=== PATIENT | male | born 1935 | race Caucasian/White ===

== ENCOUNTER 2017-04-20 09:25 | Emergency (ER) | payer OTHER ==
[~2017-04-20] VITALS: Ht 165.1 cm; Wt 63.5 kg
[~2017-04-20 09:25] MED LIST: ATEN50TA PO; CLIN-63 PO; LISI5TAB; LOVA20TA PO; LOVA40TA2 PO; OMEP20CA4 PO; OMEP20TA68 PO; TAMS-12 PO; TAMS0.4C34 PO
[2017-04-20 09:29] VITALS: BP 159/84
== END 2017-04-20 10:00 | disposition home or self-care (01) ==
LOC: ER 09:27
DX: Z46.6 Encounter for fitting and adjustment of urinary device (principal); N40.1 Benign prostatic hyperplasia with lower urinary tract symptoms; R33.8 Other retention of urine; I10 Essential (primary) hypertension; Z95.1 Presence of aortocoronary bypass graft; Z88.6 Allergy status to analgesic agent
CPT/HCPCS: 99281; A4606; Z7502; Z7610

== ENCOUNTER 2017-11-11 14:01 | Emergency (ER) | payer MEDICARE, OTHER ==
[~2017-11-11] VITALS: Ht 167.6 cm; Wt 70.3 kg
[~2017-11-11 14:01] MED LIST changes: -CLIN-63 PO; +CLIN150C16 PO; +OMEP20TA5 PO; -OMEP20TA68 PO
--- NOTE | 2017-11-11 14:10 | NUR ---
AAOX3, CAME TO ER C/O DYSURIA, PAIN DURING URINATION HX OF BPH. RR IS EVEN AND UNLABORED WITH NAD NOTED. SKIN IS WARM AND DRY. AWAITING MD FOR EVAL.
[2017-11-11 15:05] LABS: BASOPHILS # (AUTO) 0.5 /CMM (0.0-0.2); BASOPHILS % (AUTO) 2.9 % (0.0-2.0); EOSINOPHILS # (AUTO) 0.1 /CMM (0.0-0.7); EOSINOPHILS % (AUTO) 0.7 % (0.0-6.0); HEMATOCRIT 40 % (39-51); HEMOGLOBIN 13.9 g/dL (13.5-17.5); LYMPHOCYTES # (AUTO) 1.4 /CMM (0.8-4.8); LYMPHOCYTES % (AUTO) 9.1 % (20.0-44.0); MEAN CORPUSCULAR HEMOGLOBIN 31 PG (26.0-33.0); MEAN CORPUSCULAR HGB CONC 35 g/dl (31.0-36.0); MEAN CORPUSCULAR VOLUME 91 fL (80-96); MONOCYTES # (AUTO) 0.7 /CMM (0.1-1.30); MONOCYTES % (AUTO) 4.5 % (2.0-12.0); NEUTROPHILS # (AUTO) 13.2 /CMM (1.8-8.9); NEUTROPHILS % (AUTO) 82.8 % (43.0-81.0); PLATELET COUNT (AUTO) 160 /CMM (150-450); RED BLOOD CELL COUNT(AUTO) 4.43 MIL/uL (4.5-6.0); WHITE BLOOD COUNT (AUTO) 15.9 K/uL (4.3-11.0)
[2017-11-11 15:15] LABS: CALCIUM, SERUM 8.2 mg/dL (8.5-10.1); CARBON DIOXIDE 26 mmol/L (21-32); CHLORIDE 96 mmol/L (98-107); CREATININE 0.8 mg/dL (0.6-1.3); GLUCOSE 98 mg/dL (74-106); POTASSIUM 4.5 mmol/L (3.5-5.1); SODIUM SERUM 128 mmol/L (136-145); UREA NITROGEN, BLOOD 15 mg/dL (7-18)
[2017-11-11 15:21] LABS: ALANINE AMINOTRANSFERASE 38 U/L (12-78); ALKALINE PHOSPHATASE 108 U/L (46-116); ASPARTATE AMINOTRANSFERASE 23 U/L (15-37); BILIRUBIN,DIRECT 0.5 mg/dL (0.0-0.2); BILIRUBIN,TOTAL 3.4 mg/dL (0.2-1.0); LIPASE 129 U/L (73-393); TOTAL PROTEIN, SERUM 7.1 g/dL (6.4-8.2)
[2017-11-11 15:45] LABS: APPEARANCE,URINE Slightly Cloudy (CLEAR); BILIRUBIN,URINE SMALL (NEGATIVE); BLOOD, URINE Trace-lysed Ery/uL (NEGATIVE); KETONES,URINE 15 (NEGATIVE); LEUKOCYTE ESTERASE ,URINE Trace (NEGATIVE); NITRITE, URINE Negative (NEGATIVE); PROTEIN,URINE 30 mg/dl (NEGATIVE); UGLUCOSE 100 MG/DL mg/dL (NEGATIVE)
[2017-11-11 15:51] LABS: COLOR,URINE Dark Yellow (YELLOW)
[2017-11-11 15:53] LABS: BACTERIA,URINE Rare /HPF (None Seen); SQUAMOUS EPITHELIAL CELL,UR Few /HPF (None Seen)
--- NOTE | 2017-11-11 15:57 | NUR ---
PATIENT TRANSPORTED FOR CT VIA WHEELCHAIR.
--- NOTE | 2017-11-11 16:50 | NUR ---
DR JONES AT FOR AN UPDATE AND RE-EVAL.
--- NOTE | 2017-11-11 16:55 | NUR ---
Patient discharged to home in stable condition. Written and verbal after care instructions given. Patient verbalizes understanding of instruction.
[2017-11-11] MEDS ORDERED: CIPROFLOXACIN HCL 500 MG TABLET ONE (16:57)
[2017-11-11 16:58] VITALS: BP 130/68
[2017-11-11] MEDS ORDERED: CIPROFLOXACIN HCL 250 MG TABLET PO ONE (17:00)
== END 2017-11-11 16:59 | disposition home or self-care (01) ==
LOC: ER 14:05
DX: R30.0 Dysuria (principal); E87.1 Hypo-osmolality and hyponatremia; R91.1 Solitary pulmonary nodule; R94.5 Abnormal results of liver function studies; E78.5 Hyperlipidemia, unspecified; I10 Essential (primary) hypertension; I25.10 Atherosclerotic heart disease of native coronary artery without angina pectoris; K21.9 Gastro-esophageal reflux disease without esophagitis; K44.9 Diaphragmatic hernia without obstruction or gangrene; K59.00 Constipation, unspecified; N40.1 Benign prostatic hyperplasia with lower urinary tract symptoms; Z90.49 Acquired absence of other specified parts of digestive tract; Z95.1 Presence of aortocoronary bypass graft; Z98.890 Other specified postprocedural states; Z88.6 Allergy status to analgesic agent; Z79.01 Long term (current) use of anticoagulants
CPT/HCPCS: 36415; 74176; 80048; 80076; 81001; 83690; 85025; 99285; A4606; 81000-TC; Z7610

== ENCOUNTER 2017-12-23 10:03 | Emergency (ER) | payer MEDICARE ==
[~2017-12-23] VITALS: Ht 165.1 cm; Wt 62.6 kg
--- NOTE | 2017-12-23 10:15 | NUR ---
PT CAME IN WITH C/O NECK PAIN X2 DAY ADMISSIONS NURSE . DENIES TRAUMA FALL DENIES CP. SEEN BY MD FOR EVAL. VSS. SAFETY AND COMFORT MEASURES PROVIDED. WILL MONITOR.
[2017-12-23] MEDS ORDERED: ONDANSETRON 4 MG TAB.RAPDIS ONE (10:48)
[2017-12-23] MEDS ORDERED: CYCLOBENZAPRINE 10 MG TABLET ONE (10:48)
--- NOTE | 2017-12-23 10:50 | NUR ---
PT TAKEN TO CT.
[2017-12-23] MEDS ORDERED: CYCLOBENZAPRINE 10 MG TABLET PO ONE (11:00)
[2017-12-23] MEDS ORDERED: HYDROMORPHONE INJ 0.5 MG/0.5 ML SYRINGE IM ONE (11:00)
[2017-12-23] MEDS ORDERED: MORPHINE SULFATE INJ 2 MG/ML DISP.SYRIN IM ONE (11:00)
[2017-12-23] MEDS ORDERED: ONDANSETRON 4 MG TAB.RAPDIS SL ONE (11:00)
--- NOTE | 2017-12-23 11:00 | NUR ---
PT MEDICATED ORDERED.
[2017-12-23] MEDS ORDERED: HYDROCODONE/APAP 5/325MG 1 EACH TABLET ONE (11:24)
[2017-12-23] MEDS ORDERED: HYDROCODONE/APAP 5/325MG 1 EACH TABLET PO ONE (11:30)
--- NOTE | 2017-12-23 12:00 | NUR ---
Patient discharged to home in stable condition. Written and verbal after care instructions given. Patient verbalizes understanding of instruction.
[2017-12-23 12:13] VITALS: BP 131/85
== END 2017-12-23 12:13 | disposition home or self-care (01) ==
LOC: ER 10:04
DX: M54.2 Cervicalgia (principal); M19.90 Unspecified osteoarthritis, unspecified site; E78.5 Hyperlipidemia, unspecified; I10 Essential (primary) hypertension; I25.10 Atherosclerotic heart disease of native coronary artery without angina pectoris; K21.9 Gastro-esophageal reflux disease without esophagitis; N40.0 Benign prostatic hyperplasia without lower urinary tract symptoms; Z90.49 Acquired absence of other specified parts of digestive tract; Z95.1 Presence of aortocoronary bypass graft; Z88.6 Allergy status to analgesic agent; Z88.8 Allergy status to other drugs, medicaments and biological substances
CPT/HCPCS: 72125; 99284; A4606; Q0162; Z7610

== ENCOUNTER 2019-06-26 18:47 | Emergency (ER) | payer MEDICARE ==
[~2019-06-26] VITALS: Ht 165.1 cm; Wt 59.9 kg
[~2019-06-26 18:47] MED LIST changes: -ATEN50TA PO; +CARV25TA2 PO; -CLIN150C16 PO; +LATA2.5D7 EACHEYE; -LISI5TAB; +LISI5TAB PO; -LOVA20TA PO; -OMEP20CA4 PO; -OMEP20TA5 PO; +PANT40TA4 PO; +SILO8CAP2 PO; -TAMS-12 PO
[2019-06-26 19:09] VITALS: BP 109/64
[2019-06-26] MEDS ORDERED: LIDOCAINE 2% JEL UROJET 10 ML MM ONE ×2 (19:30→19:31)
== END 2019-06-26 20:19 | disposition home or self-care (01) ==
LOC: ER 18:51
DX: R33.9 Retention of urine, unspecified (principal); I10 Essential (primary) hypertension; E78.5 Hyperlipidemia, unspecified; I25.10 Atherosclerotic heart disease of native coronary artery without angina pectoris; K21.9 Gastro-esophageal reflux disease without esophagitis; N40.0 Benign prostatic hyperplasia without lower urinary tract symptoms; Z95.1 Presence of aortocoronary bypass graft; Z90.49 Acquired absence of other specified parts of digestive tract; Z88.6 Allergy status to analgesic agent; Z88.9 Allergy status to unspecified drugs, medicaments and biological substances
CPT/HCPCS: 51701; 99284; J3490

== ENCOUNTER 2019-07-11 10:38 | Emergency (ER) | payer MEDICARE, OTHER ==
[~2019-07-11] VITALS: Ht 165.1 cm; Wt 59.9 kg
--- NOTE | 2019-07-11 10:58 | NUR ---
PATIENT ARRIVED AT [facility]IT [facility]. A/O X 4. NOTED WITH JAMISON CATH IN PLACE. PATIENT REQUESTING JAMISON TO BE REMOVED. VERBALIZING HIS NEXT URILOGY APPT UNTIL . PATIENT CONNECTED TO MONITOR. WILL CONTINUE TO MONITOR ACCORDINGLY
[2019-07-11 11:34] LABS: APPEARANCE,URINE Clear (CLEAR); BILIRUBIN,URINE MODERATE (NEGATIVE); BLOOD, URINE Large Ery/uL (NEGATIVE); COLOR,URINE Yellow (YELLOW); KETONES,URINE Negative (NEGATIVE); LEUKOCYTE ESTERASE ,URINE Trace (NEGATIVE); NITRITE, URINE Negative (NEGATIVE); PH,URINE 5.5 (5.0-8.0); PROTEIN,URINE >=300 mg/dl (NEGATIVE); UGLUCOSE Negative (NEGATIVE)
[2019-07-11 11:36] LABS: BACTERIA,URINE Few /HPF (None Seen); SQUAMOUS EPITHELIAL CELL,UR Rare /HPF (None Seen)
[2019-07-11] MEDS ORDERED: LIDOCAINE 2% JEL UROJET 10 ML MM ONE (12:18)
[2019-07-11] MEDS ORDERED: CIPROFLOXACIN HCL 250 MG TABLET PO ONE (12:30)
--- NOTE | 2019-07-11 12:58 | NUR ---
JAMISON CATHETER CHANGED PER DR RAMIREZ ORDER. PATIENT TOLERATED WELL. WILL CONTINUE TO MONITOR
[2019-07-11] MEDS ORDERED: CIPROFLOXACIN HCL 500 MG TABLET ONE (13:09)
--- NOTE | 2019-07-11 13:10 | NUR ---
DR JAMES DOCKERY AT BEDSIDE ADDRESSING HIS CONCERNS ARE
--- NOTE | 2019-07-11 13:25 | NUR ---
PATIENT SPOKE WITH DR RAMIREZ. PATIENT NOW AGREED TO TAKE CIPRO. MEDICATION GIVEN ORDERED. WILL CONTINUE TO MONITOR
[2019-07-11 13:50] VITALS: BP 120/68
--- NOTE | 2019-07-11 13:52 | NUR ---
Patient discharged to home in stable condition. Written and verbal after care instructions given. Written prescriptions provided to patient. Patient verbalizes understanding of instruction.
== END 2019-07-11 13:52 | disposition home or self-care (01) ==
LOC: ER 10:38
DX: N39.0 Urinary tract infection, site not specified (principal); R33.9 Retention of urine, unspecified; I10 Essential (primary) hypertension; E78.5 Hyperlipidemia, unspecified; I25.10 Atherosclerotic heart disease of native coronary artery without angina pectoris; K21.9 Gastro-esophageal reflux disease without esophagitis; N40.0 Benign prostatic hyperplasia without lower urinary tract symptoms; Z98.890 Other specified postprocedural states; Z95.1 Presence of aortocoronary bypass graft; Z90.49 Acquired absence of other specified parts of digestive tract; Z79.899 Other long term (current) drug therapy; Z88.6 Allergy status to analgesic agent; Z88.9 Allergy status to unspecified drugs, medicaments and biological substances
CPT/HCPCS: 51702; 81001; 99284; J3490; 81000-TC; 87086-TC

== ENCOUNTER 2019-07-15 16:55 | Emergency (ER) | payer OTHER ==
[~2019-07-15] VITALS: Ht 165.1 cm; Wt 59.9 kg
--- NOTE | 2019-07-15 17:02 | NUR ---
"LEAKING CATH, INSERTED 2 DAYS AGO, ON ATB PO CIPRO FOR UTI, C/O DYSURIA" PT AAOX4, -SOB, NAD NOTED, VSS ,TORI FERNANDEZ
[2019-07-15 17:51] LABS: BASOPHILS % (AUTO) 0.4 % (0.0-2.0); HEMATOCRIT 31 % (39-51); HEMOGLOBIN 10.1 g/dL (13.5-17.5); LYMPHOCYTES # (AUTO) 0.8 /CMM (0.8-4.8); LYMPHOCYTES % (AUTO) 7.3 % (20.0-44.0); MEAN CORPUSCULAR HGB CONC 33 g/dl (31.0-36.0); MEAN CORPUSCULAR VOLUME 91 fL (80-96); MONOCYTES # (AUTO) 0.7 /CMM (0.1-1.30); MONOCYTES % (AUTO) 6.2 % (2.0-12.0); NEUTROPHILS # (AUTO) 9.3 /CMM (1.8-8.9); NEUTROPHILS % (AUTO) 85.1 % (43.0-81.0); PLATELET COUNT (AUTO) 213 /CMM (150-450); RED BLOOD CELL COUNT(AUTO) 3.35 MIL/uL (4.5-6.0); WHITE BLOOD COUNT (AUTO) 10.9 K/uL (4.3-11.0)
[2019-07-15 17:58] LABS: CALCIUM, SERUM 8.2 mg/dL (8.5-10.1); CARBON DIOXIDE 24 mmol/L (21-32); CHLORIDE 105 mmol/L (98-107); CREATININE 1.2 mg/dL (0.6-1.3); GLUCOSE 112 mg/dL (74-106); POTASSIUM 4.7 mmol/L (3.5-5.1); SODIUM SERUM 137 mmol/L (136-145); UREA NITROGEN, BLOOD 28 mg/dL (7-18)
[2019-07-15 18:26] VITALS: BP 121/70
[2019-07-15 18:36] LABS: BILIRUBIN,URINE Negative (NEGATIVE); BLOOD, URINE Large Ery/uL (NEGATIVE); COLOR,URINE Yellow (YELLOW); KETONES,URINE Negative (NEGATIVE); LEUKOCYTE ESTERASE ,URINE Large (NEGATIVE); NITRITE, URINE Negative (NEGATIVE); PH,URINE 5.5 (5.0-8.0); PROTEIN,URINE 100 mg/dl (NEGATIVE); UGLUCOSE Negative (NEGATIVE); UROBILINOGEN,URINE 0.2 EU/dL (0.2)
[2019-07-15 18:47] LABS: APPEARANCE,URINE SLIGHTLY HAZY (CLEAR)
[2019-07-15 18:51] LABS: BACTERIA,URINE Moderate /HPF (None Seen); RBC,URINE 51-80 /HPF (0-2); SQUAMOUS EPITHELIAL CELL,UR Rare /HPF (None Seen)
--- NOTE | 2019-07-15 19:16 | NUR ---
Patient discharged to home in stable condition. Written and verbal after care instructions given. Patient verbalizes understanding of instruction. IV removed. Catheter intact and site benign. Pressure and 4x4 applied to site. No bleeding noted.
== END 2019-07-15 19:18 | disposition home or self-care (01) ==
LOC: ER 17:00
DX: T83.098A Other mechanical complication of other urinary catheter, initial encounter (principal); N40.0 Benign prostatic hyperplasia without lower urinary tract symptoms; N39.0 Urinary tract infection, site not specified; I10 Essential (primary) hypertension; E78.5 Hyperlipidemia, unspecified; I25.10 Atherosclerotic heart disease of native coronary artery without angina pectoris; K21.9 Gastro-esophageal reflux disease without esophagitis; Z98.890 Other specified postprocedural states; Z90.49 Acquired absence of other specified parts of digestive tract; Z95.1 Presence of aortocoronary bypass graft; Z88.6 Allergy status to analgesic agent; Z88.9 Allergy status to unspecified drugs, medicaments and biological substances; Z79.899 Other long term (current) drug therapy
CPT/HCPCS: 36415; 80048-TC; 81000-TC; 85025-TC; 87086-TC

== ENCOUNTER 2022-10-11 10:43 | Emergency (ER) | payer MEDICARE ==
[~2022-10-11] VITALS: Ht 167.6 cm; Wt 61.7 kg
[~2022-10-11 10:43] MED LIST changes: +LATA2.5D15 EACHEYE; -LATA2.5D7 EACHEYE; -PANT40TA4 PO; +PANT40TA49 PO
--- NOTE | 2022-10-11 11:10 | NUR ---
laceration on rt hand for 2 day dressing dry seen in UC 10/10/22
--- NOTE | 2022-10-11 11:30 | NUR ---
md izaiah begum
--- NOTE | 2022-10-11 11:50 | NUR ---
Patient discharged to home in stable condition. Written and verbal after care instructions given. Patient verbalizes understanding of instruction.
[2022-10-11 11:56] VITALS: BP 121/61
== END 2022-10-11 11:57 | disposition home or self-care (01) ==
LOC: ER 10:47
DX: S60.221A Contusion of right hand, initial encounter (principal); I10 Essential (primary) hypertension; Z95.1 Presence of aortocoronary bypass graft; Z90.49 Acquired absence of other specified parts of digestive tract; Z88.8 Allergy status to other drugs, medicaments and biological substances; Z79.899 Other long term (current) drug therapy; W22.8XXA Striking against or struck by other objects, initial encounter; Y93.89 Activity, other specified; Y92.89 Other specified places as the place of occurrence of the external cause; Y99.8 Other external cause status